=== PATIENT | male | born 1960 | race Caucasian/White ===

== ENCOUNTER 2023-03-21 14:31 | Emergency (ER) | payer OTHER, BC, SELFPAY ==
[2023-03-21 14:33] VITALS: BP 176/112; PULSE 70; RESP 16; TEMP 36.4; O2SAT 97
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
[2023-03-21 15:52] VITALS: BP 162/90; PULSE 60; RESP 18; O2SAT 97
== END 2023-03-21 15:53 | disposition home or self-care (01) ==
PROVIDERS: Emergency Provider Emergency Medicine; PCP Family Medicine Sports Medicine
DX: S50.812A Abrasion of left forearm, initial encounter (principal); I10 Essential (primary) hypertension; V49.40XA Driver injured in collision with unspecified motor vehicles in traffic accident, initial encounter
CPT/HCPCS: 99282